=== PATIENT | female | born 1985 | race Caucasian/White ===

== ENCOUNTER 2018-12-03 23:08 | Emergency (ER) | payer OTHER ==
[~2018-12-03] VITALS: Ht 152.4 cm; Wt 81.6 kg
[~2018-12-03 23:08] MED LIST: ANAPROX DS550 MG PO; CLARITIN10 MG PO; DOXYCYCLINE MO100 MG PO; MEDROL DOSEPAK4 MG PO; PERCOCET 325 MG1 TA5 PO; ROBITUSSIN AC 110 ML PO; ZITHROMAX Z PA250 MG PO
[2018-12-03] MEDS ORDERED: ZYRTEC10 M3 PO (23:21)
[2018-12-04 00:39] LABS: BASO # 0.1 10*3/uL (0.0-0.1); BASO % 0.5 % (0.0-1.0); EOS # 0.3 10*3/uL (0.0-0.4); EOS % 1.6 % (1.0-4.0); HEMATOCRIT 40.3 % (37.0-47.0); HEMOGLOBIN 13.5 g/dl (12.0-16.0); LYMPH # 3.4 10*3/uL (1.3-4.4); LYMPH % 17.8 % (27.0-41.0); MEAN CELL VOLUME 86.3 fl (81.0-99.0); MEAN CORPUSCULAR HGB 28.9 pg (27.0-31.0); MEAN CORPUSCULAR HGB CONC 33.5 g/dl (33.0-37.0); MONO % 5.3 % (3.0-9.0); NEUT # 14.2 10*3/uL (2.3-7.9); NEUT % 74.4 % (47.0-73.0); PLATELET COUNT AUTOMATED 330 10*3/uL (130-400); RED BLOOD COUNT 4.67 10*6/uL (4.10-5.10); RED CELL DISTRI WIDTH 13.2 % (0-14.5)
[2018-12-04 00:50] LABS: BUN 12 mg/dl (7-24); CHLORIDE 105 mmol/L (98-107); CREATININE 1.05 mg/dL (0.55-1.02); POTASSIUM 2.9 mmol/L (3.5-5.1); SODIUM 139 mmol/L (136-145)
[2018-12-04] MEDS ORDERED: PREDNISONE20 M1 PO (02:34)
[2018-12-04] MEDS ORDERED: ZITHROMAX250 MG PO (02:34)
== END 2018-12-04 02:50 | disposition home or self-care (01) ==
LOC: ED 23:08
PROVIDERS: Emergency Medicine Emergency Medical Services
DX: J02.9 Acute pharyngitis, unspecified (principal); R06.1 Stridor; R00.0 Tachycardia, unspecified; R06.02 Shortness of breath; R05 Cough; R09.81 Nasal congestion; Z88.0 Allergy status to penicillin; Z79.899 Other long term (current) drug therapy; Z87.891 Personal history of nicotine dependence

== ENCOUNTER → 2021-10-13 | Outpatient (CLI) | payer OTHER ==
[~2021-10-13] MED LIST changes: +CLEOCIN HCL300 MG PO; +CLINDAMYCIN150 MG PO; +CRANBERRY500 M3 PO; +Motrin,Rufen800 MG PO; +NORCO 5-325 TA1 EACH PO; +PREDNISONE20 M1 PO; +ZITHROMAX250 MG PO; +ZYRTEC10 M3 PO
[2021-10-13 08:24] LABS: BASO # 0.1 10*3/uL (0.0-0.1); BASO % 1.1 % (0.0-1.0); EOS # 0.3 10*3/uL (0.0-0.4); EOS % 3.8 % (1.0-4.0); HEMATOCRIT 40.6 % (37.0-47.0); LYMPH # 2.7 10*3/uL (1.3-4.4); LYMPH % 40.3 % (27.0-41.0); MEAN CELL VOLUME 91.9 fl (81.0-99.0); MEAN CORPUSCULAR HGB 29.2 pg (27.0-31.0); MEAN CORPUSCULAR HGB CONC 31.8 g/dl (33.0-37.0); MEAN PLATELET VOLUME 10.8 fl (9.6-12.3); MONO # 0.4 10*3/uL (0.1-1.0); MONO % 5.4 % (3.0-9.0); NEUT # 3.3 10*3/uL (2.3-7.9); NEUT % 49.2 % (47.0-73.0); PLATELET COUNT AUTOMATED 260 10*3/uL (130-400); RED BLOOD COUNT 4.42 10*6/uL (4.10-5.10); RED CELL DISTRI WIDTH 15.5 % (0-14.5); WHITE BLOOD COUNT 6.7 10*3/uL (4.8-10.8)
[2021-10-14 07:06] LABS: PROLACTIN 10.1 ng/mL (4.8-23.3)
[2021-10-14 08:08] LABS: FOLLICLE STIMULATING HORMONE 6.2 mIU/mL (.); LUTEINIZING HORMONE 3.5 mIU/mL (.)
[2021-10-15 01:05] LABS: TESTOSTERONE FREE, (DIRECT) 5.6 pg/mL (0.0-4.2)
== END | disposition home or self-care (01) ==
LOC: LAB 08:02
PROVIDERS: ATTEND Nurse Practitioner Women's Health
DX: R53.83 Other fatigue (principal); N91.1 Secondary amenorrhea

== ENCOUNTER 2022-09-12 08:03 | Emergency (ER) | payer OTHER ==
[~2022-09-12] VITALS: Wt 79.8 kg
[2022-09-12] MEDS ORDERED: PROTONIX40 MG PO (09:21)
[2022-09-12] MEDS ORDERED: CARAFATE1 G1 PO (09:21)
[2022-09-12 09:26] VITALS: BP 130/92
[2022-09-12 09:41] VITALS: BP 130/91
[2022-09-12 09:56] VITALS: BP 120/89
[2022-09-12 10:26] VITALS: BP 113/89
== END 2022-09-12 09:38 | disposition home or self-care (01) ==
LOC: ED 08:03
DX: T18.128A Food in esophagus causing other injury, initial encounter (principal); Z88.0 Allergy status to penicillin; Z79.2 Long term (current) use of antibiotics; Z79.899 Other long term (current) drug therapy; Z90.89 Acquired absence of other organs; Z98.51 Tubal ligation status; Z96.22 Myringotomy tube(s) status; Z87.891 Personal history of nicotine dependence; X58.XXXA Exposure to other specified factors, initial encounter; Y93.89 Activity, other specified; Y92.89 Other specified places as the place of occurrence of the external cause; Y99.8 Other external cause status

== ENCOUNTER → 2022-10-04 | Day surgery (SDC) | payer OTHER ==
[~2022-10-04] VITALS: Ht 152.4 cm; Wt 78.0 kg
[~2022-10-04] MED LIST changes: +CARAFATE1 G1 PO; +DAYSEE 0.15-0.1 EAC1 PO; +PROTONIX40 MG PO
[2022-10-04 08:29] VITALS: BP 126/89
[2022-10-04 09:17] VITALS: BP 113/74
[2022-10-04 09:32] VITALS: BP 120/68
[2022-10-04 09:47] VITALS: BP 122/72
== END | disposition home or self-care (01) ==
LOC: SDC 10-01 10:15
PROVIDERS: ATTEND Surgery
DX: R13.10 Dysphagia, unspecified (principal); K21.9 Gastro-esophageal reflux disease without esophagitis; Z90.89 Acquired absence of other organs; Z90.49 Acquired absence of other specified parts of digestive tract

== ENCOUNTER → 2023-10-21 | Outpatient (CLI) | payer OTHER | END | disposition home or self-care (01) | LOC: RAD 11:00 | PROVIDERS: ATTEND Internal Medicine | DX: J40 Bronchitis, not specified as acute or chronic (principal); J39.8 Other specified diseases of upper respiratory tract ==